=== PATIENT | female | born 1995 | race Caucasian/White ===

== ENCOUNTER 2020-08-13 11:40 | Emergency (ER) | payer OTHER ==
[~2020-08-13] VITALS: Ht 165.1 cm; Wt 75.3 kg
[2020-08-13 11:45] VITALS: BP 127/91
--- NOTE | 2020-08-13 11:49 | NUR ---
PT PRESENTS TO ED WITH COMPLAINTS OF LACERATION TO LEFT 5TH DIGIT SINCE LAST NIGHT AFTER CUTTING HER FINGER WITH GLASS. 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 PT STATES SHE CUT HER LEFT 5TH DIGIT AND WOKE UP TODAY WITH NUMBNESS AND TINGLING TO LEFT HAND TODAY AND STATES SHE IS HAVING DECREASED MOVEMENT D/T PAIN. CMS INTACT IN TRIAGE. PT ALSO STATES "I FEEL LIKE THERE IS GLASS STILL STUCK IN THERE." NO ACTIVE BLEEDING AT THIS TIME.
--- NOTE | 2020-08-13 11:50 | NUR ---
PT SENT TO LOBBY TO WAIT FOR AVAILABLE BED.
--- NOTE | 2020-08-13 12:15 | NUR ---
PT TAKEN TO XR VIA W/C.
[2020-08-13] MEDS ORDERED: BACITRACIN OINT 500 UNITS/GM PKT TP ONE (13:10)
[2020-08-13] MEDS ORDERED: BACI-352 TP (13:17)
[2020-08-13] MEDS ORDERED: IBUP-1842 PO (13:17)
[2020-08-13 13:35] VITALS: BP 127/91
--- NOTE | 2020-08-13 13:35 | NUR ---
Patient discharged with v/s stable. Written and verbal after care instructions given and explained. Patient alert, oriented and verbalized understanding of instructions. Ambulatory with steady gait. All questions addressed prior to discharge. ID band removed. Patient advised to follow up with PMD. Rx of Neomycin and Motrin given. Patient educated on indication of medication including possible reaction and side effects. Opportunity to ask questions provided and answered.
== END 2020-08-13 13:35 | disposition home or self-care (01) ==
LOC: MED 11:40
DX: S61.412A Laceration without foreign body of left hand, initial encounter (principal); W25.XXXA Contact with sharp glass, initial encounter; Y93.G1 Activity, food preparation and clean up; Y92.89 Other specified places as the place of occurrence of the external cause; Y99.8 Other external cause status
CPT/HCPCS: 73140; 90471; 90715; 99283